=== PATIENT | male | born 1985 | race Asian ===

== ENCOUNTER 2022-10-16 11:01 | Emergency (ER) | payer OTHER ==
[~2022-10-16] VITALS: Ht 177.8 cm; Wt 75.0 kg
[2022-10-16 11:19] VITALS: BP 113/78
[2022-10-16] MEDS ORDERED: NIRM1TAB PO (12:09)
== END 2022-10-16 12:43 | disposition home or self-care (01) ==
LOC: ER 11:01
DX: R05.8 Other specified cough (principal); R09.81 Nasal congestion; Z20.822 Contact with and (suspected) exposure to COVID-19
CPT/HCPCS: 99281